=== PATIENT | male | born 1995 | race Caucasian/White ===

== ENCOUNTER 2019-12-04 21:27 | Emergency (ER) | payer BC ==
[2019-12-04] MEDS ORDERED: Diphtheria,Pertussis(Acell),Tetanus Vaccine 0.5 ML Syringe IM ONE (21:41)
[2019-12-04] MEDS ORDERED: Lidocaine 1% 10 ML MDV INJECT ONE (21:41)
--- NOTE | 2019-12-04 21:43 | EDM.PDOC ---
ED HPI GENERAL MEDICAL PROBLEM - General Chief Complaint: General Stated Complaint: LEFT HAND INJURY LACERATION WITH RAZOR BLADE Time Seen by Provider: 12/04/19 21:37 Source of Information: Reports: Patient History Limitations: Reports: No Limitations - History of Present Illness INITIAL COMMENTS - FREE TEXT/NARRATIVE: Patient is a 24-year-old male who presents to the emergency department with complaints of a laceration to his left hand. States he was working on a motor with a punch box tender and it slipped and cut his hand. States it was a new razor blade. His last tetanus vaccination he thinks was when he was 16 years old. Left Hand Pain Score (Numeric/FACES): 5 - Related Data Allergies Allergy/AdvReac Type Severity Reaction Status Date / Time No Known Allergies Allergy Verified 12/04/19 21:40 Home Meds: Home Meds Albuterol [Proventil Neb Soln] 1 puff PO ASDIRECTED PRN 12/04/19 [History] Budesonide/Formoterol [Symbicort 160-4.5 MCG] 1 puff PO ASDIRECTED PRN 12/04/19 [History] ED ROS GENERAL - Review of Systems Review Of Systems: Comprehensive ROS is negative, except as noted in HPI. ED EXAM, GENERAL - Physical Exam Exam: See Below Exam Limited By: No Limitations General Appearance: Alert, WD/WN, No Apparent Distress Skin Exam: Other (4 cm vertical, gaping laceration to the thenar eminence of the left hand. Moderate amount of bleeding noted. Patient has full range of motion, and strength to flexion and extension of the left thumb.) ED GENERAL MEDICAL PROCEDURES - Laceration/Wound Repair left thenar eminance Lac/wound length in cm: 4 Appearance: Subcutaneous Distal NVT: Neuro & Vascular Intact, No Tendon Injury Anesthetic Type: Local Local Anesthesia - Lidocaine (Xylocaine): 1% Plain Local Anesthetic Volume: 4cc Skin Prep: Chlorhexidine (Hibiciens), Providone-Iodine (Betadine), Saline Exploration/Debridement/Repair: Wound Explored, In a Bloodless Field, Explored to Base, No Foreign Material Found Closed with: Sutures Suture Size: 4-0 # of Sutures: 5 Suture Type: Nylon Suture Size: 4-0 # of Sutures: 2 Repaired with: Vicryl Sterile Dressing Applied: Nurse Tetanus Status Addressed: Yes Complications: No Progress/Comments: Small arterial bleed noted. Was able be tied off with a single 4-0 Vicryl suture. Bleeding subsided thereafter. Wound well approximated. Course - Vital Signs Last Recorded V/S: Last Vital Signs Temp 97.0 F 12/04/19 21:38 Pulse 113 H 12/04/19 21:38 Resp 20 12/04/19 21:38 BP 135/93 H 12/04/19 21:38 Pulse Ox 97 12/04/19 21:38 - Orders/Labs/Meds Orders: Active Orders 24 hr Category Date Time Status Vaccines to be Administered [RC] PER UNIT ROUTINE Care 12/04/19 21:41 Active Meds: Medications Discontinued Medications Generic Name Dose Route Start Last Admin Trade Name Freq PRN Reason Stop Dose Admin Diphtheria/Tetanus/Acell Pertussis 0.5 ml 12/04/19 21:41 12/04/19 21:46 Adacel IM 12/04/19 21:42 0.5 ml .ONCE ONE Administration Lidocaine HCl 10 ml 12/04/19 21:41 12/04/19 21:46 Xylocaine 1% INJECT 12/04/19 21:42 10 ml ONETIME ONE Administration Departure - Departure Time of Disposition: 22:16 Disposition: Home, Self-Care 01 Condition: Good Clinical Impression: Laceration - Discharge Information *PRESCRIPTION DRUG MONITORING PROGRAM REVIEWED*: No *COPY OF PRESCRIPTION DRUG MONITORING REPORT IN PATIENT BRIDGER: No Instructions: Laceration Care, Adult Referrals: PCP,None [Primary Care Provider] - Forms: ED Department Discharge Additional Instructions: You were seen in the emergency department today for a laceration to your left hand. The wound was cleansed and closed with 2 internal sutures which will dissolve, as well as 7 external sutures which should be removed in 7-10 days by any nurse. You may call to the clinic and request to schedule a nurse visit for the suture removal. Wound should be kept clean and dry. Wash twice daily with normal soap and water. You may shower as normal, however the hand should not be submerged in water for any reason. If there is any chance that the wound could become contaminated, recommend that you keep it well covered. Otherwise you may leave it open to air. Watch for signs of infection including increased redness, swelling, or purulent drainage. If these should occur, he should be seen either in the emergency department or in the clinic as this is a sign of infection. You may ice over the area intermittently for the next couple days to help control the swelling. You may use [id number] Tylenol or ibuprofen as needed for any pain. Return to the ER as needed. Sepsis Event Note - Evaluation Sepsis Screening Result: No Definite Risk - Focused Exam Vital Signs: Vital Signs Temp Pulse Resp BP Pulse Ox 12/04/19 21:38 97.0 F 113 H 20 135/93 H 97 Date Exam was Performed: 12/04/19 Time Exam was Performed: 22:11 - My Orders Last 24 Hours: My Active Orders 12/04/19 21:41 Vaccines to be Administered [RC] PER UNIT ROUTINE - Assessment/Plan Last 24 Hours: My Active Orders 12/04/19 21:41 Vaccines to be Administered [RC] PER UNIT ROUTINE
== END 2019-12-04 22:21 | disposition home or self-care (01) ==
LOC: JD.ED 21:27
DX: S61.412A Laceration without foreign body of left hand, initial encounter (principal); Z23 Encounter for immunization; W27.8XXA Contact with other nonpowered hand tool, initial encounter
CPT/HCPCS: 12042; 90471; 90715; 99282; J2001; 12002